=== PATIENT | female | born 1980 | race Hispanic/Latino ===

== ENCOUNTER 2021-01-24 12:14 | Emergency (ER) | payer SELFPAY ==
--- NOTE | 2021-01-24 13:39 | RAD REPORT ---
EXAM DESCRIPTION: RAD - Chest Pa And Lat (2 Views) - 01/24/2021 1:17 pm CLINICAL HISTORY: COUGH Chest pain. COMPARISON: No comparisons FINDINGS: Mild to moderate bilateral pulmonary opacities are present likely related to underlying vi ral infection/bronchitis. The heart is normal in size. No displaced fractures.
[2021-01-24 14:10] LABS: SARS-COV-2 RT PCR POSITIVE (NEGATIVE)
--- NOTE | 2021-01-24 14:20 | EDPHYS ---
Physician Documentation [facility] Name: Jeanette Roberts Age: 40 yrs Sex: Female : 1980 Arrival Date: 01/24/2021 Time: 12:18 Bed Waiting Private MD: ED Physician Paul Aggarwal HPI: 01/24 13:54 This 40 yrs old Female presents to ER via Ambulatory with complaints of Cough, kb Breathing Difficulty. 13:54 The patient or guardian reports cough, difficulty breathing. The patient has not kb recently seen a physician. 13:55 Onset: The symptoms/episode began/occurred 12 day(s) ago, and became worse 3 day(s) kb ago. Severity of symptoms: At their worst the symptoms were moderate, in the emergency department the symptoms are unchanged. Modifying factors: The symptoms are alleviated by nothing, the symptoms are aggravated by exertion. Associated signs and symptoms: The patient has no apparent associated signs or symptoms. The patient has not experienced similar symptoms in the past. Historical: - PMHx: 14:16 gestational diabetes; Pre-eclampsia; iw - PSHx: 14:16 Cholecystectomy; iw ROS: 13:55 Constitutional: Negative for fever, chills, and weight loss. kb 13:55 Respiratory: Positive for cough, dyspnea on exertion, shortness of breath, Negative for hemoptysis, orthopnea, pleurisy, sputum production, wheezing. 13:55 All other systems are negative. Exam: 13:55 Constitutional: This is a well developed, well nourished patient who is awake, alert, kb and in no acute distress. Head/Face: Normocephalic, atraumatic. ENT: Moist Mucous membranes Cardiovascular: Regular rate and rhythm with a normal S1 and S2. No gallops, murmurs, or rubs. No pulse deficits. Respiratory: Respirations even and unlabored. No increased work of breathing, no retractions or nasal flaring. Abdomen/GI: Soft, non-tender. No distention Skin: Warm, dry with normal turgor. Normal color. MS/ Extremity: Pulses equal, no cyanosis. Neurovascular intact. Full, normal range of motion. Neuro: Awake and alert, GCS 15, oriented to person, place, time, and situation. Moves all extremities. Normal gait. Psych: Awake, alert, with orientation to person, place and time. Behavior, mood, and affect are within normal limits. Vital Signs: 12:30 BP 108 / 66; Pulse 103; Resp 20; Temp 98.6(O); Pulse Ox 96% on R/A; Weight 113.4 kg kg (R); Height 5 ft. 7 in. (170.18 cm) (R); Pain 3/10; 12:30 Body Mass Index 39.16 (113.40 kg, 170.18 cm) kg MDM: 12:43 Patient medically screened. kb 13:53 Data reviewed: vital signs, nurses notes. Data interpreted: Pulse oximetry: on room air kb is 96 %. Interpretation: normal. Counseling: I had a detailed discussion with the patient and/or guardian regarding: the historical points, exam findings, and any diagnostic results supporting the discharge/admit diagnosis, lab results, radiology results, the need for outpatient follow up, a family practitioner, to return to the emergency department if symptoms worsen or persist or if there are any questions or concerns that arise at home. 01/24 12:31 Order name: XRAY Chest Pa And Lat (2 Views); Complete Time: 13:41 rn 01/24 14:10 Order name: COVID-19/FLU A+B; Complete Time: 14:19 EDMS Administered Medications: No medications were administered Disposition: 17:22 Co-signature as Attending Physician, Paul Aggarwal MD I agree with the assessment and rn plan of care. Attestation: The patient's history, exam findings, diagnostics, and a summary of any interventions or procedures was reviewed in detail with Yazmin CHRISTIANSON. Disposition Summary: 01/24/21 14:19 Discharge Ordered Location: Home kb Condition: Stable kb Diagnosis - Coronavirus infection, unspecified kb Followup: kb - With: Emergency Department - When: As needed - Reason: Worsening of condition Followup: kb - With: Private Physician - When: 2 - 3 days - Reason: Recheck today's complaints, Continuance of care, Re-evaluation by your physician Discharge Instructions: - Discharge Summary Sheet kb - Viral Respiratory Infection, [id number] kb - COVID-19 kb Forms: - Medication Reconciliation Form kb - Thank You Letter kb - Antibiotic Education kb - Prescription Opioid Use kb Prescriptions: - Prednisone 20 mg Oral Tablet - take 1 tablet by ORAL route once daily for 5 days; 5 tablet; Refills: 0, kb Product Selection Permitted - Zithromax 500 mg Oral Tablet - take 1 tablet by ORAL route once daily for 5 days; 5 tablet; Refills: 0, kb Product Selection Permitted Signatures: Dispatcher [employer] EDYazmin Lu, SHIRA-Huyen SILVA-Elaine Wise RN RN iw Paul Aggarwal MD MD internet project manager: (The following items were deleted from the chart) 13:24 12:38 CORONAVIRUS+MR.LAB.BRZ ordered. EDMS EDMS 13:25 12:38 Influenza Screen (A \T\ B)+BA.LAB.BRZ ordered. EDMS EDMS
--- NOTE | 2021-01-24 14:20 | ER ---
Nurse's Notes [facility] Name: Jeanette Roberts Age: 40 yrs Sex: Female : 1980 Arrival Date: 01/24/2021 Time: 12:18 Bed Waiting Private MD: Diagnosis: Coronavirus infection, unspecified Presentation: 01/24 12:30 Chief complaint: Patient states: SOB on any movement symptoms started 01/11 but have kg gotten significantly worse over the last three days. Coronavirus screen: Client denies travel out of the [place] in the last 14 days. At this time, unable to obtain information related to travel outside the [place] At this time, the client does not indicate any symptoms associated with coronavirus-19. Coronavirus screen: Client presents with at least one sign or symptom that may indicate coronavirus-19. Standard/surgical mask placed on the client. Provider contacted for isolation considerations. At this time, the client does not indicate any symptoms associated with coronavirus-19. Ebola Screen: Patient negative for fever greater than or equal to 101.5 degrees Fahrenheit, and additional compatible Ebola Virus Disease symptoms Patient denies exposure to infectious person. Patient denies travel to an Ebola-affected area in the 21 days before illness onset. Initial Sepsis Screen: Does the patient meet any 2 criteria? No. Patient's initial sepsis screen is negative. Does the patient have a suspected source of infection? No. Patient's initial sepsis screen is negative. Risk Assessment: Do you want to hurt yourself or someone else? Patient reports no desire to harm self or others. Onset of symptoms was January 11, 2021. 12:30 Method Of Arrival: Ambulatory kg 12:30 Acuity: ANGUS 4 kg Historical: - PMHx: 14:16 gestational diabetes; Pre-eclampsia; iw - PSHx: 14:16 Cholecystectomy; iw Vital Signs: 12:30 BP 108 / 66; Pulse 103; Resp 20; Temp 98.6(O); Pulse Ox 96% on R/A; Weight 113.4 kg kg (R); Height 5 ft. 7 in. (170.18 cm) (R); Pain 3/10; 12:30 Body Mass Index 39.16 (113.40 kg, 170.18 cm) kg ED Course: 12:18 Patient arrived in ED. mr 12:32 Triage completed. kg 12:37 Yazmin Wynne [facility]-C [facility] kb 12:37 Paul Aggarwal MD is Attending Physician. kb 13:17 XRAY Chest Pa And Lat (2 Views) In Process Unspecified. EDMS 14:41 Elaine Bowser, RN is Primary Nurse. iw Administered Medications: No medications were administered Outcome: 14:19 Discharge ordered by MD. kb 14:41 Discharged to home ambulatory. iw 14:41 Condition: good 14:41 Discharge instructions given to patient, Instructed on discharge instructions, follow up and referral plans. medication usage, Demonstrated understanding of instructions, follow-up care, medications, Prescriptions given X 2. 14:42 Patient left the ED. iw Signatures: Dispatcher [employer] EDKS Yazmin Wynne FNP-C FNP-Ckb RiveraAyde mr Elaine Bowser, RN RN iw Kamryn Zaragoza RN RN kg
[2021-01-24 14:46] VITALS: BP 108/66; TEMP 98.6; O2SAT 96
== END 2021-01-24 14:42 | disposition home or self-care (01) ==
LOC: ER 12:14
DX: U07.1 COVID-19 (principal)
CPT/HCPCS: 0240U; 71046; 99283